=== PATIENT | female | born 1935 | race Caucasian/White ===

== ENCOUNTER 2020-08-04 07:02 | Inpatient (IN) | payer MEDICARE ==
[2020-08-04] MEDS ORDERED: niCARdipine 20MG In NaCl 20 MG/200 ML BAG ONE (07:29)
[2020-08-04 07:46] LABS: #Basophils 0.1 10x3/uL (0.0-0.2); #Eosinphils 0.2 10x3/uL (0.0-0.5); #Monocytes 0.9 10x3/uL (0.0-1.1); #Neutrophils 5.8 10x3/uL (1.5-8.4); %Basophils 0.6 % (0.0-2.0); %Eosinophils 2.4 % (0.0-6.0); %Lymphocytes 27.7 % (18.0-47.0); %Monocytes 9.1 % (0.0-10.0); %Neutrophils 59.9 % (40.0-75.0); Hemoglobin 12.5 g/dL (12.0-15.5); Mean Corpuscular HGB CONC 31.1 g/dL (32.0-36.0); Mean Corpuscular Hemoglobin 28.9 pg (27.0-33.0); Mean Corpuscular Volume 92.8 fl (81.6-98.3); Mean Platelet Volume 9.3 fl (7.4-10.4); Platelet Count 369 10x3/uL (150-450); RBC Distribution Width 15.2 % (11.5-14.5); Red Blood Cell (RBC) Count 4.33 10x6/uL (3.90-5.03); White Blood Cell (WBC) Count 9.7 10x3/uL (3.5-10.5)
[2020-08-04 07:54] LABS: Bilirubin Neg (Negative); Blood, Urine Negative (Negative); Clarity Slightly Cloudy (Clear); Glucose, Urine (Dipstick) Normal (Negative); Ketone, Urine Negative (Negative); Leukocyte Negative (Negative); Nitrite Negative (Negative); Protein, Urine (Dipstick) 100 mg/dl (Neg-Trace); Specific Gravity, Urine 1.005 (1.002-1.036); Urobilinogen Normal mg/dL (Less than 2)
[2020-08-04 07:57] LABS: ALT (SGPT) 34 U/L (8-55); AST (SGOT) 26 U/L (5-34); Albumin 4.3 g/dL (3.4-4.8); Alkaline Phosphatase 78 U/L (40-110); Anion Gap 16 mmol/L (10-20); BUN (Urea Nitrogen) 25 mg/dL (9.8-20.1); Bilirubin, Total 0.4 mg/dL (0.2-1.2); CK (CPK) 54 U/L (29-168); Calc. Creatinine Clearance 0 mL/min (70-130); Calcium 10.1 mg/dL (7.8-10.44); Carbon Dioxide 23 mmol/L (23-31); Chloride 104 mmol/L (98-107); Glucose 113 mg/dL (83-110); Potassium 4.6 mmol/L (3.5-5.1); Protein, Total 7.3 g/dL (5.8-8.1); Sodium 138 mmol/L (136-145)
[2020-08-04 08:00] LABS: INR-International Normal Ratio 0.9; PTT 25.8 sec (22.0-33.0)
[2020-08-04 08:09] LABS: Bacteria/HPF Rare-Few HPF (None Seen); RBC/HPF 0-3 HPF (0-3); Squamous Epithelial 0-3 HPF (0-3); WBC/HPF 0-3 HPF (0-3)
[2020-08-04] MEDS ORDERED: Dextrose 5% in Water 1,000 ML IV PRN (10:35)
[2020-08-04] MEDS ORDERED: Eucerin (Mineral Oil/Petrolatum,White) 30 gm Jar TOP PRN (10:35)
[2020-08-04] MEDS ORDERED: Calcium Carbonate 500 MG ChewTAB PO PRN (10:35)
[2020-08-04] MEDS ORDERED: Bisacodyl 5 MG TAB PO PRN (10:35)
[2020-08-04] MEDS ORDERED: Dextrose 50% Abboject 50 ML SYRINGE SLOW IVP PRN (10:35)
[2020-08-04] MEDS ORDERED: HumaLOG 300 UNITS/3 ML VIAL SC PRN ×2 (10:35)
[2020-08-04] MEDS ORDERED: Zolpidem Tartrate 5 MG TAB PO PRN (10:35)
[2020-08-04] MEDS ORDERED: Senokot S 8.6-50 MG TAB PO PRN (10:35)
[2020-08-04] MEDS ORDERED: hydrALAZINE 20 MG/ML VIAL SLOW IVP PRN (10:35)
[2020-08-04] MEDS ORDERED: Loperamide HCl 2 MG CAP PO PRN (10:35)
[2020-08-04] MEDS ORDERED: Ondansetron PF 4 MG/2 ML Vial IVP PRN (10:35)
[2020-08-04] MEDS ORDERED: Sodium Chloride 0.65% Nasal 44 ML BOT EA NARE PRN (10:35)
[2020-08-04] MEDS ORDERED: HYDROcodone/Acetaminophen 5/325 mg Tablet PO PRN (10:35)
[2020-08-04] MEDS ORDERED: Loratadine 10 MG TAB PO PRN (10:35)
[2020-08-04] MEDS ORDERED: Ondansetron ODT 4 MG TAB PO PRN (10:35)
[2020-08-04] MEDS ORDERED: niCARdipine 25 MG in Sodium Chloride 0.9% 250 ML 250 ML IVPB SCH (10:45)
[2020-08-04 11:07] LABS: Troponin I 0.011 ng/mL (< 0.028)
[2020-08-04] MEDS ORDERED: Acetaminophen 325 MG TAB ONE (14:37)
[2020-08-04] MEDS ORDERED: niCARdipine 25 MG in Sodium Chloride 0.9% 250 ML 240 ML IVPB SCH (15:00)
[2020-08-04] MEDS: Nitroglycerin 2% Ointment 1 INCH/1 GM Packet TOP SCH ×2 (15:33→22:00)
[2020-08-04] MEDS ORDERED: Nitroglycerin 2% Ointment 1 INCH/1 GM Packet ONE (15:35)
[2020-08-04 19:14] VITALS: BMI 24.3
[2020-08-04] MEDS: Acetaminophen 325 MG TAB PO PRN (20:37)
[2020-08-04] MEDS: Famotidine 20 MG TAB PO SCH (20:38)
[2020-08-05 02:14] LABS: SARS-CoV-2 PCR by NAA Not Detected (NotDetected)
[2020-08-05 05:24] LABS: #Basophils 0.1 10x3/uL (0.0-0.2); #Eosinphils 0.3 10x3/uL (0.0-0.5); #Monocytes 0.9 10x3/uL (0.0-1.1); %Basophils 0.6 % (0.0-2.0); %Eosinophils 3.2 % (0.0-6.0); %Lymphocytes 24.8 % (18.0-47.0); %Monocytes 10.5 % (0.0-10.0); %Neutrophils 60.7 % (40.0-75.0); Hemoglobin 10.9 g/dL (12.0-15.5); Mean Corpuscular HGB CONC 32.2 g/dL (32.0-36.0); Mean Corpuscular Hemoglobin 29.1 pg (27.0-33.0); Mean Corpuscular Volume 90.1 fl (81.6-98.3); Mean Platelet Volume 9.1 fl (7.4-10.4); Platelet Count 329 10x3/uL (150-450); RBC Distribution Width 15.4 % (11.5-14.5); Red Blood Cell (RBC) Count 3.75 10x6/uL (3.90-5.03); White Blood Cell (WBC) Count 8.3 10x3/uL (3.5-10.5)
[2020-08-05 05:31] LABS: ALT (SGPT) 22 U/L (8-55); AST (SGOT) 18 U/L (5-34); Albumin 3.6 g/dL (3.4-4.8); Alkaline Phosphatase 61 U/L (40-110); Anion Gap 13 mmol/L (10-20); BUN (Urea Nitrogen) 33 mg/dL (9.8-20.1); Bilirubin, Total 0.3 mg/dL (0.2-1.2); Calc. Creatinine Clearance 28 mL/min (70-130); Calcium 9.4 mg/dL (7.8-10.44); Carbon Dioxide 22 mmol/L (23-31); Cardiac Risk 8.1 (Less than 4.5); Chloride 106 mmol/L (98-107); Cholesterol 298 mg/dl (< 200 Desired); Globulin 2.3 g/dL (2.4-3.5); Glucose 122 mg/dL (83-110); HDL Cholesterol 37 mg/dL (>60 Neg Risk); LDL Cholesterol, Calculated 206 mg/dL; Potassium 4.4 mmol/L (3.5-5.1); Protein, Total 5.9 g/dL (5.8-8.1); Sodium 137 mmol/L (136-145); Triglycerides 275 mg/dL (Less than 150)
[2020-08-05] MEDS: Nitroglycerin 2% Ointment 1 INCH/1 GM Packet TOP SCH (07:03)
[2020-08-05] MEDS: Acetaminophen 325 MG TAB PO PRN (07:04)
[2020-08-05] MEDS: Famotidine 20 MG TAB PO SCH ×2 (08:52→21:01)
[2020-08-05] MEDS: NIFEdipine XL 60 MG TAB PO SCH (08:52)
[2020-08-05] MEDS: Losartan 25 MG TAB PO SCH (08:54)
[2020-08-05] MEDS: hydrALAZINE 25 MG TAB PO SCH ×3 (08:54→21:01)
[2020-08-05] MEDS: Donepezil HCl 5 MG TAB PO SCH (08:55)
[2020-08-05] MEDS ORDERED: Enoxaparin Sodium 40 MG/0.4 ML SYRINGE SC SCH (09:00)
[2020-08-05] MEDS: Atorvastatin Calcium 40 MG TAB PO SCH (21:01)
[2020-08-06] MEDS: Acetaminophen 325 MG TAB PO PRN (04:13)
[2020-08-06] MEDS: Levothyroxine 150 MCG TAB PO SCH (06:22)
[2020-08-06] MEDS: Enoxaparin Sodium 30 MG/0.3 ML SYRINGE SC SCH (09:06)
[2020-08-06] MEDS: Donepezil HCl 5 MG TAB PO SCH (09:06)
[2020-08-06] MEDS: NIFEdipine XL 60 MG TAB PO SCH (09:06)
[2020-08-06] MEDS: Losartan 25 MG TAB PO SCH (09:06)
[2020-08-06] MEDS: hydrALAZINE 25 MG TAB PO SCH ×3 (09:07→20:38)
[2020-08-06] MEDS: Famotidine 20 MG TAB PO SCH ×2 (09:07→20:38)
[2020-08-06 13:32] LABS: Bilirubin Neg (Negative); Blood, Urine Negative (Negative); Clarity Clear (Clear); Glucose, Urine (Dipstick) Normal (Negative); Ketone, Urine Negative (Negative); Leukocyte 100 (Negative); Nitrite Negative (Negative); Protein, Urine (Dipstick) 30 mg/dl (Neg-Trace); Specific Gravity, Urine 1.015 (1.002-1.036); Urobilinogen Normal mg/dL (Less than 2)
[2020-08-06 13:33] LABS: Urine Culture Reflex No No
[2020-08-06 13:45] LABS: RBC/HPF 0-3 HPF (0-3)
[2020-08-06 13:46] LABS: Bacteria/HPF 1+ HPF (None Seen); Renal Epithelial 0-3 HPF (None Seen)
[2020-08-06] MEDS: cefTRIAXone\\ROCEPHIN 1 GM in Sodium Chloride 0.9% 100 ML IVPB SCH (18:07)
[2020-08-06] MEDS: Atorvastatin Calcium 40 MG TAB PO SCH (20:38)
[2020-08-07 05:47] LABS: Anion Gap 14 mmol/L (10-20); BUN (Urea Nitrogen) 32 mg/dL (9.8-20.1); Calc. Creatinine Clearance 31 mL/min (70-130); Calcium 9.5 mg/dL (7.8-10.44); Carbon Dioxide 21 mmol/L (23-31); Chloride 106 mmol/L (98-107); Glucose 124 mg/dL (83-110); Potassium 4.3 mmol/L (3.5-5.1); Sodium 137 mmol/L (136-145)
[2020-08-07 05:52] LABS: #Basophils 0.1 10x3/uL (0.0-0.2); #Eosinphils 0.3 10x3/uL (0.0-0.5); #Neutrophils 5.2 10x3/uL (1.5-8.4); %Eosinophils 2.8 % (0.0-6.0); %Lymphocytes 26.4 % (18.0-47.0); %Monocytes 10.8 % (0.0-10.0); %Neutrophils 58.5 % (40.0-75.0); Hemoglobin 11.7 g/dL (12.0-15.5); Mean Corpuscular HGB CONC 31.9 g/dL (32.0-36.0); Mean Corpuscular Hemoglobin 29.5 pg (27.0-33.0); Mean Corpuscular Volume 92.7 fl (81.6-98.3); Mean Platelet Volume 9.6 fl (7.4-10.4); Platelet Count 361 10x3/uL (150-450); RBC Distribution Width 15.6 % (11.5-14.5); Red Blood Cell (RBC) Count 3.96 10x6/uL (3.90-5.03); White Blood Cell (WBC) Count 8.8 10x3/uL (3.5-10.5)
[2020-08-07] MEDS: Levothyroxine 150 MCG TAB PO SCH (06:20)
[2020-08-07] MEDS: Donepezil HCl 5 MG TAB PO SCH (08:24)
[2020-08-07] MEDS: Famotidine 20 MG TAB PO SCH ×2 (08:25→21:39)
[2020-08-07] MEDS: NIFEdipine XL 60 MG TAB PO SCH (08:25)
[2020-08-07] MEDS: hydrALAZINE 25 MG TAB PO SCH ×3 (08:25→21:40)
[2020-08-07] MEDS: Enoxaparin Sodium 30 MG/0.3 ML SYRINGE SC SCH (08:26)
[2020-08-07] MEDS: Losartan 25 MG TAB PO SCH (08:26)
[2020-08-07] MEDS: cefTRIAXone\\ROCEPHIN 1 GM in Sodium Chloride 0.9% 100 ML IVPB SCH (17:50)
[2020-08-07] MEDS: Atorvastatin Calcium 40 MG TAB PO SCH (21:39)
[2020-08-07] MEDS: Acetaminophen 325 MG TAB PO PRN (22:57)
[2020-08-08] MEDS: Levothyroxine 150 MCG TAB PO SCH (05:56)
[2020-08-08 08:00] VITALS: BP 128/67; TEMP 98.3
[2020-08-08] MEDS: Donepezil HCl 5 MG TAB PO SCH (09:20)
[2020-08-08] MEDS: Losartan 25 MG TAB PO SCH (09:20)
[2020-08-08] MEDS: hydrALAZINE 25 MG TAB PO SCH (09:20)
[2020-08-08] MEDS: NIFEdipine XL 60 MG TAB PO SCH (09:20)
[2020-08-08] MEDS: Famotidine 20 MG TAB PO SCH (09:21)
[2020-08-08] MEDS: Enoxaparin Sodium 30 MG/0.3 ML SYRINGE SC SCH (09:21)
[2020-08-08] MEDS: Acetaminophen 325 MG TAB PO PRN (09:26)
== END 2020-08-08 09:45 | disposition home health service (06) | DRG 305 ==
LOC: CSHERS 07:02 → CSHERHOLD 14:42 → CSHTELE 17:52
PROVIDERS: ADMIT Internal Medicine; ATTEND Internal Medicine
DX: I16.9 Hypertensive crisis, unspecified (principal); N30.00 Acute cystitis without hematuria; Z20.822 Contact with and (suspected) exposure to COVID-19; E03.9 Hypothyroidism, unspecified; R07.9 Chest pain, unspecified; F03.90 Unspecified dementia, unspecified severity, without behavioral disturbance, psychotic disturbance, mood disturbance, and anxiety; M81.0 Age-related osteoporosis without current pathological fracture; Z79.84 Long term (current) use of oral hypoglycemic drugs; Z79.890 Hormone replacement therapy; Z79.899 Other long term (current) drug therapy; E78.5 Hyperlipidemia, unspecified; E11.22 Type 2 diabetes mellitus with diabetic chronic kidney disease; I12.9 Hypertensive chronic kidney disease with stage 1 through stage 4 chronic kidney disease, or unspecified chronic kidney disease; N18.32 Chronic kidney disease, stage 3b; M51.16 Intervertebral disc disorders with radiculopathy, lumbar region; R10.9 Unspecified abdominal pain
CPT/HCPCS: 36415; 36416; 71045; 71275; 72100; 74174; 76770; 80048; 80053; 80061; 81001; 81003; 81015; 82550; 84443; 84484; 85025; 85610; 85730; 87086; 87635; 93005; 93306; 94760; 96365; 96366; J0360; J0696; J1650; J1815; J3490; U0003; U0005